=== PATIENT | male | born 1945 | race Caucasian/White ===

== ENCOUNTER → 2024-06-17 07:43 | Outpatient (REF) | payer OTHER, SELFPAY | LOC: HWRCS 07:43 | PROVIDERS: ATTENDING PHYSICIAN Internal Medicine Cardiovascular Disease; FAMILY PHYSICIAN Family Medicine | DX: I45.10 Unspecified right bundle-branch block (principal); R06.00 Dyspnea, unspecified | CPT/HCPCS: 78452; 93017; A9500; J2785 ==